=== PATIENT | male | born 1960 | race Caucasian/White ===

== ENCOUNTER 2019-06-11 09:46 | Emergency (ER) | payer BC ==
[2019-06-11 10:40] VITALS: BP 122/84
--- NOTE | 2019-06-11 12:23 | UC ---
FLU HPI - HPI Summary HPI Summary: 58 year old male with no PMH presents with illness starting Sunday. Patient states has fever, tactile, sore throat, congestiong, dry cough, chills. OTCs working well for symptoms. going to surgery, concerned about her well being. no SOB. - History of Current Complaint Chief Complaint: UCRespiratory Stated Complaint: ST,COUGH,FEVER Time Seen by Provider: 06/11/19 12:21 Hx Obtained From: Patient Onset/Duration: Sudden Onset, Lasting Days Severity Currently: Moderate Severity Initially: Moderate Pain Intensity: 3 Pain Scale Used: 0-10 Numeric Associated Signs & Symptoms: Positive: Fever, T Max, Myalgia, Cough, Sore Throat , Nasal Congestion Related Hx: Possible Flu/Infectious Exposure - Allergy/Home Medications Allergies/Adverse Reactions: Allergies Allergy/AdvReac Type Severity Reaction Status Date / Time No Known Allergies Allergy Verified 06/11/19 10:33 PMH/Surg Hx/FS Hx/Imm Hx Previously Healthy: Yes - Surgical History Surgical History: None - Family History Known Family History: Positive: None - Social History Occupation: Employed Full-time Alcohol Use: Daily Substance Use Type: None Smoking Status (MU): Former Smoker When Did the Patient Quit Smoking/Using Tobacco: 1989 Review of Systems All Other Systems Reviewed And Are Negative: Yes Constitutional: Positive: Fever, Chills, Fatigue ENT: Positive: Sore Throat, Nasal Discharge, Sinus Congestion, Sinus Pain/ Tenderness Respiratory: Positive: Cough Cardiovascular: Positive: Negative Gastrointestinal: Positive: Negative Neurovascular: Positive: Negative Musculoskeletal: Positive: Myalgia Neurological/Mental Status: Positive: Headache Psychological: Positive: Negative Is Patient Immunocompromised?: No Physical Exam Triage Information Reviewed: Yes Appearance: No Pain Distress, Well-Nourished, Ill-Appearing - mild Vital Signs: Initial Vital Signs Temp 97.6 F 06/11/19 10:33 Pulse 78 06/11/19 10:33 Resp 16 06/11/19 10:33 BP 122/84 06/11/19 10:33 Pulse Ox 100 06/11/19 10:33 Vital Signs Reviewed: Yes Eyes: Positive: Conjunctiva Clear ENT: Positive: Pharynx normal, TMs normal, Sinus tenderness. Negative: Pharyngeal erythema, Tonsillar swelling, Tonsillar exudate, Uvula midline Neck: Positive: Supple, Nontender, No Lymphadenopathy. Negative: Nuchal Rigidity, Enlarged Nodes @ Respiratory: Positive: Chest non-tender, Lungs clear, Normal breath sounds, No respiratory distress, No accessory muscle use. Negative: Respiratory distress, Crackles, Rhonchi, Stridor, Wheezing Cardiovascular: Positive: RRR, No Murmur Musculoskeletal: Positive: Strength Intact Neurological: Positive: Alert Psychological: Positive: Normal Response To Family Flu Course/Dx - Course Course Of Treatment: - - Positive for flu- Tamiflu to help decrease symptoms, duration of illness - Conservative treatment- increase fluids, motrin/ tylenol as needed for pain, over the counter medicaitons for symptoms - Go to ER with difficulty breathing, fever > 102 not brought down by motrin/ tylenol, difficulty swallowing. - Very important that you contact your 's doctors and see if she should be on Tamiflu to prevent spread. - Differential Dx/Diagnosis Differential Diagnosis/HQI/PQRI: Influenza, Upper Respiratory Infection Provider Diagnosis: Influenza Discharge ED - Sign-Out/Discharge Documenting (check all that apply): Patient Departure All imaging exams completed and their final reports reviewed: No Studies - Discharge Plan Condition: Fair Disposition: HOME Prescriptions: Oseltamivir CAP* [Tamiflu CAP*] 75 mg PO BID #10 cap Patient Education Materials: Influenza (ED) Referrals: [facility] [Outside] No Primary Care Phys,[facility] [Primary Care Provider] - Additional Instructions: - - Positive for flu- Tamiflu to help decrease symptoms, duration of illness - Conservative treatment- increase fluids, motrin/ tylenol as needed for pain, over the counter medicaitons for symptoms - Go to ER with difficulty breathing, fever > 102 not brought down by motrin/ tylenol, difficulty swallowing. - Very important that you contact your 's doctors and see if she should be on Tamiflu to prevent spread. - Billing Disposition and Condition Condition: FAIR Disposition: Home
[2019-06-11 12:36] LABS: Influenza B Molecular POSITIVE (Negative)
== END 2019-06-11 12:52 | disposition home or self-care (01) ==
LOC: UCCORT 09:46
DX: J11.1 Influenza due to unidentified influenza virus with other respiratory manifestations (principal); Z87.891 Personal history of nicotine dependence
CPT/HCPCS: 99202; G0463